=== PATIENT | female | born 1980 | race Caucasian/White ===

== ENCOUNTER 2017-03-02 06:16 | Emergency (ER) | payer BC ==
[2016-02-24 12:43] VITALS: Ht 170.2 cm; Wt 64.9 kg
[~2017-03-02] VITALS: Ht 170.2 cm; Wt 64.9 kg
[~2017-03-02 06:16] MED LIST: ACE3 PO; ACET-1718 PO; ACYC-50 PO; IBUP800T37 PO; LEVO25TA57 PO; METF-410 PO; NORE-74 PO; NORE0.3529 PO; PREN-127 PO; SPIR100T31 PO
[2017-03-02] MEDS ORDERED: METF-410 PO (06:29)
[2017-03-02] MEDS ORDERED: SPIR25TA78 PO (06:29)
[2017-03-02] MEDS ORDERED: NS(*) 0.9% 1000 ML BAG 1,000 ML IV ONE (07:24)
[2017-03-02] MEDS ORDERED: IOPAMIDOL 76% 75 ML INFUS BTL 75 ML ONE (07:39)
[2017-03-02] MEDS ORDERED: NS 0.9% 50 ML VIAL 50 ML ONE (07:39)
[2017-03-02 07:46] LABS: PLATELET COUNT, AUTOMATED 326 K/uL (150-450)
--- NOTE | 2017-03-02 08:02 | ER Report ---
History and Physical Time Seen By MD: 07:25 Hx. of Stated Complaint: PATIENT STATES SHE HAS HAD DIARRHEA ALL DAY YESTERDAY AND THEN THIS MORNING HAD ANOTHER EPISODE OF DIARRHEA, BUT THIS TIME THERE WAS BLOOD MIXED IN WITH THE DIARRHEA, PATIENT STATES WHEN SHE WIPED THERE WAS A LOT OF BLOOD LEFT ON THE TOILET PAPER WELL. PATIENT STATES SHE HAS HAD ABD CRAMPING. HPI/ROS CC: Bloody stools HPI: 36-year-old female with past medical history of IBS, presents to the emergency department with complaints of diarrhea last night and diarrhea with bloody stools this morning more blood streaking. She does have a history of anal fissures but she states that it is not burning or painful. She does have slight left lower quadrant cramping. She had pain as a 3 out of 10. Periodic comes in waves. He states that they just got back from [place] her and her daughter and herself. Her daughter a week ago had 3 bouts of diarrhea nonbloody and have resolved days after that her had diarrhea by 3 bouts and it resolved. He did not brewer bloody stools. She is not complaining of nausea or vomiting. No body aches. It she's never had a colonoscopy. She denies any history of Crohn's or diverticulitis. The better historian was bright red streaking. She denies a history of hemorrhoids. She has had vaginal deliveries in the past. She denies being and has just delivered her last child couple months ago. ROS: 12 point review of systems essentially negative other than what's mentioned in history of present illness. NURSES AND OLD MEDICAL RECORDS: Reviewed PMH: Reviewed SURGICAL HX: Reviewed FAMILY HX: Noncontributory SOCIAL HX: She is and sexually active denies smoking alcohol or illicit drugs. Lives at home. VITAL SIGNS: Reviewed CONSTITUTIONAL: 36-year-old female in minimal distress. PHYSICAL EXAM: HEENT: Pupils equal round reactive to light and accommodate, EOMI, tympanic membranes pearly white umbo present with good light reflex. Lips dry mucous membranes moist gums nonbleeding uvula midline and rises equally with phonation, oropharynx noninjected, teeth intact. NECK: Neck supple, thyroid not appreciated, anterior and posterior cervical lymphadenopathy not appreciated. Trachea midline and rises equally with phonation. CARDIAC: S1-S2 regular rate rhythm no murmurs rubs or gallops. LUNGS: Lungs clear bilaterally posteriorly in all edouard. Good air movement. ABDOMEN: Abdomen soft, slight left lower quadrant tenderness, nondistended, bowel sounds active in all 4 quadrants, no bruits noted, no CVA tenderness. RECTAL EXAM: No fissures or hemorrhoids noted. Good internal and external sphincter muscle tone. MUSCULOSKELETAL: Strength 5 out of 5 x 4 extremities, no deformities noted. NEUROLOGIC: Patient alert and oriented by 3 Allergies: Coded Allergies: cefadroxil (Verified Allergy, Unknown, ANAPHYLAXIS, 03/02/17) tramadol (Verified Allergy, Unknown, HIVES, 03/02/17) Home Meds Reported Medications Spironolactone (SPIRONOLACTONE) 25 Mg Tablet, 100 MG PO BID, TAB 03/02/17 Metformin Hcl (METFORMIN HCL) 500 Mg Tablet, 1 TAB PO BID, TAB 03/02/17 Acyclovir (ACYCLOVIR) 400 Mg Tablet, 400 MG PO BID, TAB TAKE 1 TABLET BY MOUTH TWICE A DAY 05/27/14 Levothyroxine Sodium (SYNTHROID) 25 Mcg Tablet, 25 MCG PO QDAY 04/24/13 Discontinued Reported Medications Vits W-Ca,Fe,Fa(<1MG) ( VITAMINS) 1 Each Tablet, 1 EACH PO DAILY, TAB 12/04/15 Discontinued Scripts Ibuprofen (IBUPROFEN) 800 Mg Tablet, 800 MG PO Q8H, #20 TAB 0 Refills Prov:WENDIE MASON DO 02/25/16 Acetaminophen/Codeine (TYLENOL #3 (OR EQUIV)) 1 Ea Tab, 1-2 EACH PO Q4H Y for PAIN, #20 TAB 0 Refills Prov:WENDIE MASON DO 02/25/16 Hx Smoking: No Smoking Status: Never Smoker Exposure to Second Hand Smoke?: No Hx Substance Use Disorder: No Hx Alcohol Use: Yes (rare) Constitutional Vital Sign - Last 24 Hours 03/02/17 03/02/17 03/02/17 03/02/17 06:22 06:24 06:30 06:31 Temp 97.3 Pulse 89 87 Resp 16 B/P (MAP) 112/79 (90) 112/79 110/82 (91) Pulse Ox 96 96 03/02/17 03/02/17 03/02/17 03/02/17 07:00 07:01 07:30 08:03 Pulse 85 B/P (MAP) 104/75 (85) 105/76 (86) 107/79 (88) Pulse Ox 96 Medical Decision Making Data Points Result Diagram: 03/02/17 0735 03/02/17 0735 Laboratory Hematology Test 03/02/17 07:10 03/02/17 07:35 03/02/17 08:27 Stool Occult Blood (IFOB) Positive (NEGATIVE) Red Blood Count 4.79 M/uL (4.17-5.56) Mean Corpuscular Volume 97.2 fL (80.0-96.0) Mean Corpuscular Hemoglobin 33.8 pg (26.0-33.0) Mean Corpuscular Hemoglobin Concent 34.7 g/dL (32.0-36.0) Red Cell Distribution Width 12.8 % (11.5-14.5) Mean Platelet Volume 7.4 fL (7.2-11.1) Neutrophils (%) (Auto) 62.2 % (39.4-72.5) Lymphocytes (%) (Auto) 28.0 % (17.6-49.6) Monocytes (%) (Auto) 7.1 % (4.1-12.4) Eosinophils (%) (Auto) 2.1 % (0.4-6.7) Basophils (%) (Auto) 0.6 % (0.3-1.4) Nucleated RBC Relative Count (auto) 0.0 /100WBC Neutrophils # (Auto) 3.7 K/uL (2.0-7.4) Lymphocytes # (Auto) 1.7 K/uL (1.3-3.6) Monocytes # (Auto) 0.4 K/uL (0.3-1.0) Eosinophils # (Auto) 0.1 K/uL (0.0-0.5) Basophils # (Auto) 0.0 K/uL (0.0-0.1) Nucleated RBC Absolute Count (auto) 0.00 K/uL Sodium Level 141 mmol/L (137-145) Potassium Level 4.0 mmol/L (3.5-5.0) Chloride Level 104 mmol/L (98-107) Carbon Dioxide Level 25 mmol/L (22-31) Blood Urea Nitrogen 6 mg/dl (7-18) Creatinine 0.90 mg/dl (0.52-1.04) Glomerular Filtration Rate Calc > 60.0 Random Glucose 88 mg/dl (75-110) Calcium Level 9.1 mg/dl (8.4-10.2) Total Bilirubin 0.4 mg/dl (0.2-1.3) Aspartate Amino Transf (AST/SGOT) 18 U/L (0-35) Alanine Aminotransferase (ALT/SGPT) 28 U/L (0-56) Alkaline Phosphatase 84 U/L (0-126) Total Protein 7.4 gm/dl (6.3-8.2) Albumin 4.0 g/dl (3.5-5.0) Amylase Level 64 U/L (0-110) Lipase 53 U/L (23-300) Chemistry Test 03/02/17 07:10 03/02/17 07:35 03/02/17 08:27 Stool Occult Blood (IFOB) Positive (NEGATIVE) White Blood Count 5.9 k/uL (4.5-11.0) Red Blood Count 4.79 M/uL (4.17-5.56) Hemoglobin 16.2 g/dL (12.0-16.0) Hematocrit 46.6 % (34.0-47.0) Mean Corpuscular Volume 97.2 fL (80.0-96.0) Mean Corpuscular Hemoglobin 33.8 pg (26.0-33.0) Mean Corpuscular Hemoglobin Concent 34.7 g/dL (32.0-36.0) Red Cell Distribution Width 12.8 % (11.5-14.5) Platelet Count 326 K/uL (150-450) Mean Platelet Volume 7.4 fL (7.2-11.1) Neutrophils (%) (Auto) 62.2 % (39.4-72.5) Lymphocytes (%) (Auto) 28.0 % (17.6-49.6) Monocytes (%) (Auto) 7.1 % (4.1-12.4) Eosinophils (%) (Auto) 2.1 % (0.4-6.7) Basophils (%) (Auto) 0.6 % (0.3-1.4) Nucleated RBC Relative Count (auto) 0.0 /100WBC Neutrophils # (Auto) 3.7 K/uL (2.0-7.4) Lymphocytes # (Auto) 1.7 K/uL (1.3-3.6) Monocytes # (Auto) 0.4 K/uL (0.3-1.0) Eosinophils # (Auto) 0.1 K/uL (0.0-0.5) Basophils # (Auto) 0.0 K/uL (0.0-0.1) Nucleated RBC Absolute Count (auto) 0.00 K/uL Glomerular Filtration Rate Calc > 60.0 Calcium Level 9.1 mg/dl (8.4-10.2) Total Bilirubin 0.4 mg/dl (0.2-1.3) Aspartate Amino Transf (AST/SGOT) 18 U/L (0-35) Alanine Aminotransferase (ALT/SGPT) 28 U/L (0-56) Alkaline Phosphatase 84 U/L (0-126) Total Protein 7.4 gm/dl (6.3-8.2) Albumin 4.0 g/dl (3.5-5.0) Amylase Level 64 U/L (0-110) Lipase 53 U/L (23-300) Urinalysis Test 03/02/17 08:27 EKG/Imaging Imaging CT abdomen and pelvis with IV contrast: IMPRESSION: 1. Mild circumferential thickening and decompression of the transverse and descending colon could indicate mild colitis. No evidence for bowel obstruction , free air or free fluid. ED Course/Re-evaluation ED Course Patient with mild colitis. Hemoccult was positive. Patient will be placed on Flagyl and follow up with PCP. Patient without leukocytosis. Patient will be managed on an outpatient basis. Patient will plan and in agreement. Re-evaluation Medical decision-making includes but not excluded to fissures, hemorrhoids, diverticulitis, colitis Decision to Disposition Date: Mar 02, 2017 Decision to Disposition Time: 08:38 Depart Departure Latest Vital Signs Vital Signs Date Time Temp Pulse Resp B/P (MAP) Pulse Ox O2 Delivery O2 Flow Rate FiO2 03/02/17 08:03 107/79 (88) 03/02/17 07:01 85 96 03/02/17 06:24 97.3 16 Impression: Primary Impression: Colitis Condition: Condition Unchanged Disposition: HOME OR SELF-CARE Referrals: ISAAC CALLES MD (PCP) New Scripts Metronidazole (FLAGYL) 500 Mg Tablet 500 MG PO TID for 10 Days, #30 TAB Prov: TIGRE VERMA MD 03/02/17 Patient Instructions: Colitis (ED) Additional Instructions: You have been given Flagyl take as directed. Follow-up with your regular physician. He may return to the emergency department. I and the staff wanted to thank you for allowing us to take care of your needs today in the emergency department at [facility]. We have tried to answer all of your questions and concerns. Please feel free to return to the emergency department for any further concerns or unanswered questions. TIGRE VERMA MD Mar 02, 2017 08:02
--- NOTE | 2017-03-02 08:26 | RADIOLOGY IMAGING REPORT ---
FACILITY: [facility] [place] PATIENT NAME: Keysha Orosco : 1980 MR: [id number] V: [id number] EXAM DATE: ORDERING PHYSICIAN: TIGRE VERMA TECHNOLOGIST: Location: [facility] Patient: Keysha Orosco : 1980 Visit/Account:[id number] Date of Sevice: 03/02/2017 ABDOMEN/PELVIS WITH CONTRAST HISTORY: 36-year-old female with bloody stools TECHNIQUE: CT abdomen and pelvis with intravenous contrast. Contiguous axial images of the abdomen and pelvis was performed from the lung bases to the symphysis pubis. One of the following dose optimization techniques was utilized in the performance of this exam: Autom ated exposure control; adjustment of the mA and/or kV according to the patient's size; or use of an i terative reconstruction technique. Specific details can be referenced in the facility's radiology C T exam operational policy. CONTRAST: 75 cc of Isovue-370 COMPARISON: None. FINDINGS: Visualized lung bases: Negative. Hepatobiliary: 2 tiny hypodensities in the liver are noted in segment 8 and segment 7 likely small b enign cysts. Gallbladder and bile ducts are unremarkable. Spleen: Negative. Adrenals: Negative. Kidneys/: Negative. Pancreas: Negative. GI: There is mild circumferential thickening and decompression of the transverse and descending colo n which could indicate mild colitis. No bowel obstruction or free fluid. Appendix is normal. Terminal ileum and small bowel are grossly unremarkable. Vessels/spaces/nodes: Negative. Bones/soft tissues: Negative. IMPRESSION: 1. Mild circumferential thickening and decompression of the transverse and descending colon could in dicate mild colitis. No evidence for bowel obstruction, free air or free fluid. Report Dictated By: Catracho Bee MD at 03/02/2017 8:15 AM Report E-Signed By: Catracho Bee MD at 03/02/2017 8:22 AM WSN:[id number]
[2017-03-02] MEDS ORDERED: METR-1 PO (08:40)
[2017-03-02 08:44] VITALS: BP 118/81
== END 2017-03-02 08:57 | disposition home or self-care (01) ==
LOC: ER 06:17
DX: K52.9 Noninfective gastroenteritis and colitis, unspecified (principal)
CPT/HCPCS: 74177; 81001; 81025; 82150; 82274; 83690; 85025; 96360; 99284; J7030; J7050; Q9967; 82040; 82247; 82310; 82374; 82435; 82565; 82947; 84075; 84132; 84155; 84295; 84450; 84460; 84520

== ENCOUNTER 2017-05-09 00:15 | Day surgery (SDC) | payer BC ==
[2016-02-24 12:43] VITALS: Ht 170.2 cm; Wt 62.6 kg
[~2017-05-09] VITALS: Ht 170.2 cm; Wt 62.6 kg
[~2017-05-09 00:15] MED LIST changes: +CETI10CA8 PO; +CLIN300C99 PO; +CYCL10TA29 PO; +LACT1CAP6 PO; +METR-1 PO; +PEG4000S17 PO; +SPIR25TA78 PO; +TURM500C4 PO
[2017-05-09] MEDS ORDERED: PROPOFOL EMUL(*) 10MG/ML 20 ML 20 ML ONE ×2 (07:04→10:36)
[2017-05-09 08:44] VITALS: BP 103/57
[2017-05-09] MEDS ORDERED: LIDOCAINE/SOD BICARB 8.4% SYR ID ONE (09:50)
[2017-05-09] MEDS ORDERED: NORMOSOL R SOLN(*) 1000 ML BAG 1,000 ML IV PRN (09:50)
[2017-05-09] MEDS ORDERED: MIDAZOLAM 2 MG/2 ML VIAL IVP ONE (09:50)
[2017-05-09 11:05] VITALS: BP 103/66
[2017-05-09 11:15] VITALS: BP 108/67
--- NOTE | 2017-05-09 11:16 | Short(Outpt) Discharge Summary ---
Discharge Summary Reason for Hosp/Final Diag: (1) Bright red blood per rectum Status: Resolved Hospital Course & Plan: EGD with biopsies and colonoscopy with biopsies completed without problems. (2) Alternating constipation and diarrhea Status: Chronic (3) Colitis Status: Resolved Departure Discharge to: Home, Self Care Discharge Instructions Home Meds Active Scripts Peg 3350/Na Sulf,Bicarb,Cl/Kcl (GAVILYTE-C SOLUTION) 4,000 Ml Soln.recon, 1 GAL PO ONCE, #1 GAL 0 Refills Prov:MADDIE MARTINEZ MD 03/20/17 Reported Medications Cyclobenzaprine Hcl (CYCLOBENZAPRINE HCL) 10 Mg Tablet, 10 MG PO HS, #9 TAB 05/03/17 Lactobacillus Combination No.4 (PROBIOTIC) 1 Each Capsule, 1 EACH PO BID, CAPSULE 03/28/17 Cetirizine Hcl (ZYRTEC) 10 Mg Capsule, 10 MG PO QDAY, CAPSULE 03/28/17 Turmeric/Turmeric Root Extract (Turmeric 500 mg Capsule) 450 Mg-50 Mg Capsule, 1 CAP PO QDAY 03/20/17 Spironolactone (SPIRONOLACTONE) 25 Mg Tablet, 100 MG PO BID, TAB 03/02/17 Metformin Hcl (METFORMIN HCL) 500 Mg Tablet, 1 TAB PO BID, TAB 03/02/17 Acyclovir (ACYCLOVIR) 400 Mg Tablet, 400 MG PO BID, TAB TAKE 1 TABLET BY MOUTH TWICE A DAY 05/27/14 Levothyroxine Sodium (SYNTHROID) 25 Mcg Tablet, 25 MCG PO QDAY 04/24/13 Follow up Referrals: General Surgery - 05/25/17 @ Surgery, General with Maddie Martinez Md You have a follow up appointment scheduled with Dr. Martinez on 05/25/17, at 11:00am. Diet: Regular Activity: As Tolerated Special Instructions: Your EGD and colonscopy were completed without any problems. I took numerous biopsies throughout your GI tract as part of the evaluation of your symptoms. I didn't find any inflammatory changes, ulcers, polyps, cancers, etc anywhere in your upper GI tract or your colon. I will discuss all these results and your symptoms when I see you back in my office on May 25. MADDIE MARTINEZ MD May 09, 2017 11:16
[2017-05-09 11:28] VITALS: BP 101/76
[2017-05-09 11:30] VITALS: BP 101/80
== END 2017-05-09 11:50 | disposition home or self-care (01) ==
LOC: OR 00:15
PROVIDERS: ATTEND Surgery
DX: R10.84 Generalized abdominal pain (principal); R19.7 Diarrhea, unspecified
CPT/HCPCS: 00811; 43239; 45380; 81025; 87077; 88305; J2704

== ENCOUNTER → 2018-05-24 | Outpatient (CLI) | payer BC ==
[2016-02-24 12:43] VITALS: BMI 25.7
[~2018-05-24] MED LIST changes: -METF-410 PO; +METF-450 PO; -SPIR100T31 PO; +SPIR100T33 PO; -SPIR25TA78 PO; +SPIR25TA80 PO
--- NOTE | 2018-06-07 09:13 | RADIOLOGY IMAGING REPORT ---
FACILITY: [facility] [place]IENT NAME: SUNIL STEWART : [id number] MR: [id number] V: [id number] EXAM DATE: [id number] ORDERING PHYSICIAN: ISAAC CALLES TECHNOLOGIST: Tigist Chaudhari PROCEDURE:BILATERAL DIGITAL SCREENING MAMMOGRAM WITH CAD ASSISTED INTERPRETATION & 3D TOMOSYNTHESIS COMPARISON:Outside mammograms dated 11/21/10 INDICATIONS:SCREENING FINDINGS: The previous outside mammograms dated 11/21/10 have just now been received for comparison. Dense heterogeneous fibroglandular tissue is seen throughout the breasts. In the upper portion Left breast MLO view in the middle third there is a focal area of increased density for which spot compression view is recommended. There are also loosely grouped round calcifications throughout the upper outer quadrant of the Left breast for which a 6 month follow up Left mammogram is recommended. DIAGNOSTIC CATEGORY 0--INCOMPLETE: NEED ADDITIONAL IMAGING EVALUATION. RECOMMENDATIONS: ADDITIONAL MAMMOGRAPHIC VIEWS REQUIRED: LEFT BREAST. SIX MONTH FOLLOW-UP DIAGNOSTIC MAMMOGRAM: LEFT BREAST. IMPRESSION: BIRADS 0: Incomplete, need additional imaging evaluation. Additional views Left breast recommended as described. A 6 month follow up Left mammogram also recommended to evaluate the loosely grouped round calcifications in the upper outer quadrant of the Left breast. Dictated by: Alis Mckeon M.D. on 06/06/2018 at 9:19 Transcribed by: MINO on 06/06/2018 at 14:11 Approved by: Alis Mckeon M.D. on 06/07/2018 at 9:12 [facility]
== END ==
LOC: MAMO 01:29
PROVIDERS: ATTEND Obstetrics & Gynecology
DX: R92.2 Inconclusive mammogram (principal)
CPT/HCPCS: 77063; 77067

== ENCOUNTER 2018-06-06 07:41 | Outpatient (RCR) | payer BC ==
[2016-02-24 12:43] VITALS: Ht 168.8 cm; Wt 60.0 kg
[~2018-06-06] VITALS: Ht 168.8 cm; Wt 60.0 kg
[2018-06-06 16:01] VITALS: BP 115/76
--- NOTE | 2018-06-07 02:56 | ONCOLOGY CONSULTATION ---
EVENT DATE: June 06, 2018 REFERRING PHYSICIAN Patient is self-referred. REASON FOR CONSULTATION Evaluation for positive family history of breast cancer. ONCOLOGY HISTORY Patient is a 38-year-old female who had a positive family history of breast cancer in her mother at the age of 47, and her mother at the age of 57. She also has two paternal aunts with breast cancer at the age of 43 and 45 years of age. Patient has been seen by Dr. Alix Waller in [place], and BRCA1 and BRCA2 testing was done and came back negative. PAST MEDICAL HISTORY 1. Irritable bowel syndrome. 2. Hypothyroidism. 3. Polycystic ovarian syndrome. 4. Herpes simplex virus 2. PAST SURGICAL HISTORY 1. Hiatus hernia repair at age of 7 months in 1982. 2. Rhinoplasty in 2001. SOCIAL HISTORY Patient is with two children. She works as a school psychologist. She drinks occasionally but denies any abuse of tobacco or illicit drugs. FAMILY HISTORY: Her mother had breast cancer at the age of 47, and her mother at the age of 57. She also has two paternal aunts with breast cancer at the age of 43 and 45 years of age. CURRENT MEDICATIONS 1. Cyclobenzaprine 10 mg at bedtime. 2. Zyrtec 10 mg daily. 3. Spironolactone 25 mg twice daily. 4. Metformin 500 mg twice daily. 5. Acyclovir 400 mg twice daily. 6. Levothyroxine 25 mcg daily. ALLERGIES 1. DURICEF, which caused vomiting. 2. TRAMADOL and OPIATES, which cause hives. REVIEW OF SYSTEMS CONSTITUTIONAL: No appetite or weight change. No fever, chills or sweating. No recent infection. HEENT: Ears: No tinnitus or hearing problem. Nose: No nasal discharge or epistaxis. Throat: No sore throat or mouth ulcers. Eyes: No diplopia or visual changes. RESPIRATORY: No shortness of breath. No cough, expectoration or hemoptysis. CARDIOVASCULAR: No chest pain, orthopnea, or paroxysmal nocturnal dyspnea (PND). No edema. No palpitations. GASTROINTESTINAL: She has alternating diarrhea and constipation because of irritable bowel syndrome. GENITOURINARY: No hematuria or dysuria. MUSCULOSKELETAL: No pain in the muscles, joints or bones. NEUROLOGICAL: She has migraine headaches. HEMATOLOGIC/LYMPHATIC: She has some fatigue occasionally. SKIN: No skin rash or lumps. PSYCHIATRIC: No anxiety or depression. PHYSICAL EXAMINATION GENERAL: Looks stable. Well-developed, well-nourished, and in no acute distress. VITAL SIGNS: Blood pressure 115/76, pulse 104 per minute, respirations 16 per minute, temperature 98.2, pulse oximetry 95% on room air. HEENT: Head: Atraumatic. No sinus tenderness to palpation. Eyes: No icterus or conjunctivitis. Mouth and throat: No oral thrush or mucositis. NECK: Supple. No cervical or supraclavicular lymphadenopathy. LUNGS: Clear to auscultation and percussion bilaterally. HEART: Regular rate and rhythm. No gallops, murmurs, clicks or rubs. ABDOMEN: Soft and lax. No tenderness. No hepatosplenomegaly. No masses. EXTREMITIES: No cyanosis, clubbing or edema. LYMPHATICS: No peripheral lymphadenopathy. NEUROLOGICAL: Conscious, alert and oriented times three. No focal motor or sensory deficits. PSYCHIATRIC: Mood and affect appear normal. SKIN: No skin rash, bruise or purpuric eruption. ASSESSMENT Positive family history for breast cancer. Patient is a 38-year-old female who is thinking about having bilateral mastectomy. Her mother had breast cancer at age of 47 and at age of 57. She has two paternal aunts who had breast cancer at age of 43 and 45 years of age. Patient has been seen by Dr. Alix Waller in [place], and BRCA1 and BRCA2 testing was done and came back negative. Patient would like to have bilateral mastectomy. I talked to the patient that we need further genetic counseling and maybe testing for other mutation, so I am planning to refer her [facility] [place], and we will go from there. PLAN 1. Genetic counselor consult. 2. Patient to return after the above for further evaluation and management. MALKA
== END 2018-07-29 14:52 | disposition home or self-care (01) ==
LOC: ONC 07:41
PROVIDERS: ATTEND Internal Medicine Hematology
DX: Z80.3 Family history of malignant neoplasm of breast (principal); Z15.01 Genetic susceptibility to malignant neoplasm of breast
CPT/HCPCS: 99202